=== PATIENT | male | born 1990 | race Caucasian/White ===

== ENCOUNTER 2024-02-05 21:56 | Emergency (ER) | payer OTHER ==
[~2024-02-05] VITALS: Ht 177.8 cm; Wt 83.9 kg
[2024-02-05 23:43] VITALS: BP 136/74; TEMP 98.5; O2SAT 98
== END 2024-02-05 23:44 | disposition home or self-care (01) ==
LOC: ER 21:58
DX: S01.81XA Laceration without foreign body of other part of head, initial encounter (principal); W50.0XXA Accidental hit or strike by another person, initial encounter; Y93.67 Activity, basketball; Y92.89 Other specified places as the place of occurrence of the external cause; Y99.8 Other external cause status